=== PATIENT | male | born 1995 | race African-American/Black ===

== ENCOUNTER 2017-04-02 20:14 | Emergency (ER) | payer OTHER ==
[~2017-04-02] VITALS: Ht 172.7 cm; Wt 78.0 kg
[2017-04-02 20:26] VITALS: BP 167/89; PULSE 71; RESP 18; TEMP 99.2
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
[2017-04-02 21:16] LABS: AUTOMATED NEUTROPHIL # 5.7 TH/MM3 (1.8-7.7); BASOPHIL # 0.1 TH/MM3 (0-0.2); BASOPHIL % 1.1 % (0.0-2.0); EOSINOPHIL # 0.2 TH/MM3 (0-0.4); EOSINOPHIL % 2.3 % (0.0-4.0); HEMATOCRIT 43.6 % (39.0-51.0); HEMOGLOBIN 14.6 GM/DL (13.0-17.0); LYMPH % 24.6 % (9.0-44.0); LYMPHOCYTE # 2.2 TH/MM3 (1.0-4.8); MEAN CELL VOLUME 90.5 FL (80.0-100.0); MEAN CORPUSCULAR HEMOGLOBIN 30.4 PG (27.0-34.0); MEAN CORPUSCULAR HGB CONC 33.5 % (32.0-36.0); MEAN PLATELET VOLUME 8.9 FL (7.0-11.0); MONO % 8.4 % (0.0-8.0); MONOCYTE # 0.8 TH/MM3 (0-0.9); NEUT % 63.6 % (16.0-70.0); PLATELET COUNT 225 TH/MM3 (150-450); RED BLOOD COUNT 4.81 MIL/MM3 (4.50-5.90); RED CELL DISTRIBUTION WIDTH 12.4 % (11.6-17.2)
[2017-04-02 21:34] LABS: INTERNATIONAL NORMALIZED RATIO 1.1 RATIO; PROTHROMBIN TIME - PATIENT 11.2 SEC (9.8-11.6)
[2017-04-02] MEDS ORDERED: ACETAMINOPHEN 325 MG TAB PO ONE (22:00)
[2017-04-02] MEDS ORDERED: ONDANSETRON ODT 4 MG TAB PO ONE (22:00)
[2017-04-02 22:14] LABS: BICARBONATE 26.8 MEQ/L (21.0-32.0); CALCIUM 9.2 MG/DL (8.5-10.1); CREATININE 1.22 MG/DL (0.60-1.30)
[2017-04-02] MEDS ORDERED: TYLE325T PO (22:53)
--- NOTE | 2017-04-03 21:46 | EKG ---
Date Performed: 04/02/2017 Time Performed: 21:03:21 PTAGE: 21 years EKG: Sinus rhythm POSSIBLE RIGHT VENTRICULAR CONDUCTION DELAY NONSPECIFIC ST ELEVATION BORDERLINE ECG NO PREVIOUS TRACING DOCTOR: Oliver Barber Interpretating Date/Time 04/03/2017 21:44:17
== END 2017-04-02 23:09 | disposition home or self-care (01) ==
LOC: EDBD 20:14 → NEPC 20:14
DX: K92.1 Melena (principal); R42 Dizziness and giddiness; R51 Headache; V43.52XA Car driver injured in collision with other type car in traffic accident, initial encounter
CPT/HCPCS: 80048; 85025; 85610; 85730; 93005; 99284